=== PATIENT | male | born 1970 | race Caucasian/White ===

== ENCOUNTER 2019-06-23 19:21 | Emergency (ER) | payer SELFPAY ==
--- NOTE | 2019-06-23 19:31 | NUR ---
CALLED FOR TRIAGE, NO ANSWER.
--- NOTE | 2019-06-23 19:40 | NUR ---
CALLED FOR TRIAGE, NO ANSWER.
--- NOTE | 2019-06-23 20:09 | NUR ---
CALLED FOR TRIAGE, NO ANSWER.
--- NOTE | 2019-06-23 20:39 | NUR ---
CALLED FOR TRIAGE, NO ANSWER.
== END 2019-06-23 20:59 | disposition home or self-care (01) ==
LOC: ER 19:23
DX: Z53.21 Procedure and treatment not carried out due to patient leaving prior to being seen by health care provider (principal)